=== PATIENT | female | born 1970 | race Caucasian/White ===

== ENCOUNTER 2018-07-21 19:41 | Emergency (ER) | payer MEDICARE, OTHER ==
[2018-07-21 20:31] VITALS: TEMP 97.9
[2018-07-21] MEDS ORDERED: Sodium Chloride 0.9% 1,000 ML IV ONE ×2 (21:02)
--- NOTE | 2018-07-21 21:05 | C.PDOC ---
History Of Present Illness 48 year old female presents to the ED c/o head injury, neck pain, lower back pain s/p falling. Patient reports she missed a step and hit the back of her head, lower back and neck. Patient denies visual changes, CP, SOB, rash, abdomin al pain, rash, weakness, numbness. - HPI Chief Complaint (Nursing): Trauma History Per: Patient History/Exam Limitations: no limitations Onset/Duration Of Symptoms: Hrs Injury Occurred (Timing): Just Before Arrival Location Of Injury: Posterior: Back, Head, Neck Recent travel outside of the [place]: No Additional History Per: Patient Past Medical History Reviewed: Historical Data, Nursing Documentation, Vital Signs Vital Signs: Last Vital Signs Temp 97.9 F 07/21/18 20:26 Pulse 95 H 07/21/18 20:26 Resp 14 07/21/18 20:26 BP 149/89 07/21/18 20:26 Pulse Ox 94 L 07/21/18 20:26 - Medical History PMH: Asthma, Bipolar Disorder, Colonic Polyps, Depression (NO MEDS AT PRESENT), Gall Bladder Disease, HTN Denies: Chronic Kidney Disease Surgical History: Cholecystectomy - [facility] COLONOSCOPY (11/03/13) Family History: States: Unknown Family Hx - Social History Hx Tobacco Use: No Hx Alcohol Use: No Hx Substance Use: No - Immunization History Hx Tetanus Toxoid Vaccination: Yes Hx Influenza Vaccination: Yes Hx Pneumococcal Vaccination: Yes Review Of Systems Constitutional: Negative for: Fever, Chills Eyes: Negative for: Vision Change Respiratory: Negative for: Cough, Shortness of Breath Gastrointestinal: Negative for: Nausea, Vomiting, Abdominal Pain Musculoskeletal: Positive for: Neck Pain, Back Pain Skin: Negative for: Rash Neurological: Positive for: Headache. Negative for: Weakness, Numbness, Dizziness Physical Exam - Physical Exam Appears: Non-toxic, No Acute Distress Skin: Normal Color, Warm, Dry Head: Normacephalic, Swelling (soft tissue occiput, tender to palpation) Eye(s): bilateral: Normal Inspection, PERRL, EOMI Oral Mucosa: Moist Neck: Normal ROM, No Midline Cervical Tenderness, Supple Chest: Symmetrical Cardiovascular: Rhythm Regular Respiratory: Normal Breath Sounds, No Rales, No Rhonchi, No Wheezing Gastrointestinal/Abdominal: Soft, No Tenderness, No Guarding, No Rebound Back: No Vertebral Tenderness, Other (ecchymosis, sacroiliac area) Extremity: Normal ROM, No Tenderness, No Swelling Neurological/Psych: Oriented x3, Normal Speech, Normal Cognition, Other (Non focal) Gait: Steady ED Course And Treatment - Laboratory Results Result Diagrams: 07/21/18 21:57 07/21/18 21:57 ECG: Interpreted By Me, Viewed By Me ECG Rhythm: Sinus Rhythm, R BBB ECG Interpretation: No Acute Changes Interpretation Of ECG: NSR, IRBBB, Borderline tracings. Rate From EC O2 Sat by Pulse Oximetry: 94 Pulse Ox Interpretation: Normal - CT Scan/US CT head Other Rad Studies (CT/US): Read By Radiologist, Radiology Report Reviewed CT/US Interpretation: EXAM: CT Head Without IV contrast. CLINICAL HISTORY: Injury. TECHNIQUE: Axial computed tomography images of the head/brain without intravenous contrast. COMPARISON: None provided. FINDINGS: BRAIN: No evidence for acute intracranial hemorrhage. No midline shift or mass effect. No CT evidence for acute territorial infarction. VENTRICLES: No hydrocephalus. ORBITS: The orbits are unremarkable. SINUSES AND MASTOIDS: The paranasal sinuses and mastoid air cells are clear. BONES: No evidence for displaced calvarial fracture. SOFT TISSUES: Unremarkable. MISCELLANEOUS: The study is slightly limited by motion and beam hardening artifact. IMPRESSION: 1. The study is slightly limited by motion and beam hardening artifact. 2. No CT evidence for acute intracranial abnormality. . Electronically signed on Jul 21, 2018 11:40:23 PM EDT by: Maxim Cornejo M.D., Certified by ABR, Diagnostic Radiology. CT c spine Other Rad Studies (CT/US): Read By Radiologist, Radiology Report Reviewed CT/US Interpretation: EXAM: CT Cervical Spine Without IV contrast. CLINICAL HISTORY: Injury. TECHNIQUE: Axial computed tomography images of the cervical spine without intravenous contrast. Sagittal and coronal reformatted images were generated. COMPARISON: None provided. FINDINGS: ALIGNMENT: There is straightening of the cervical lordosis. No evidence for acute fracture or subluxation. No significant cervical scoliosis. DEGENERATIVE CHANGES: There are moderate multilevel degenerative spine changes in the cervical spine. SOFT TISSUES: No focal prevertebral soft tissue swelling. BONES: No acute fracture or aggressive appearing osseous lesion. MISCELLANEOUS: Minimal biapical sc arring. IMPRESSION: 1. There are moderate multilevel degenerative spine changes in the cervical spine. 2. There is straightening of the cervical lordosis. 3. No evidence for acute fracture or subluxation. . Electronically signed on Jul 21, 2018 11:58:43 PM EDT by: Maxim Cornejo M.D., Certified by ABR, Diagnostic Radiology. CT ls spine Other Rad Studies (CT/US): Read By Radiologist, Radiology Report Reviewed CT/US Interpretation: EXAM: CT Lumbar Spine without IV contrast. CLINICAL HISTORY: Injury. TECHNIQUE: Axial computed tomography images of the lumbar spine without intravenous contrast. Sagittal and coronal reformatted images were generated. 0.00 mGy-cm. COMPARISON: None provided. FINDINGS: ALIGNMENT: No evidence for acute fracture or subluxation. DISCS/DEGENERATIVE CHANGES: T12/L1: No high-grade central canal stenosis. L1/L2: No high-grade central canal stenosis. L2/L3: No high-grade central canal stenosis. L3/4: No high- grade central canal stenosis. Mild diffuse disc bulge. L4/5: No high-grade ce ntral canal stenosis. Mild diffuse disc bulge. L5/S1: No high-grade central canal stenosis. Mild diffuse disc bulge. BONES: There is diffuse osteopenia. The vertebral body height are preserved. There are moderate multilevel degenerative spine changes most notably involving the posterior elements. SOFT TISSUES: The soft tissues are unremarkable. ABDOMINAL AND PELVIC STRUCTURES. Surgical clips are noted in the gallbladder fossa. MISCELLANEOUS: IMPRESSION: 1. There is diffuse osteopenia. 2. The vertebral body height are preserved. 3. There are moderate multilevel degenerative spine changes most notably involving the posterior elements. 4. No evidence for acute fracture or subluxation. 5. No high-grade central canal stenoses identified. If more detailed evaluation is needed, recommend MRI of the lumbar spine. . Electronically signed on Jul 22, 2018 12:03:57 AM EDT by: Maxim Cornejo M.D., Certified by ABR, Diagnostic Radiology Medical Decision Making Medical Decision Making: Plan: * CT head * CT c spine * CT ls spine * EKG * Labs * IV fluids * Toradol 30 mg IVP * UA Disposition Counseled Patient/Family Regarding: Diagnosis - Disposition Referrals: [facility] [Outside] Disposition: HOME/ ROUTINE Disposition Time: 00:10 Condition: STABLE Prescriptions: Cyclobenzaprine [Flexeril] 5 mg PO TID #20 tab Naproxen 375 mg PO TIDPC #20 tablet Nitrofurantoin Macrocrystals [Macrobid] 1 cap PO BID #14 cap Instructions: Muscle Strain, Contusion (DC), Minor Head Injury (DC), Polysubstance Abuse (DC), Urinary Tract Infection, Adult (DC) Forms: [facility] (Persian) - POA Present On Arrival: None - Clinical Impression Clinical Impression: Muscle strain, Contusion, Head injury, Polysubstance abuse, UTI (urinary tract infection) - Scribe Statement The provider has reviewed the documentation as recorded by the Scribe Aly Cruz All medical record entries made by the Scribe were at my direction and personally dictated by me. I have reviewed the chart and agree that the record accurately reflects my personal performance of the history, physical exam, medical decision making, and the department course for this patient. I have also personally directed, reviewed, and agree with the discharge instructions and disposition.
[2018-07-21] MEDS ORDERED: Sodium Chloride 0.9% 1,000 ML ONE (21:23)
[2018-07-21 22:06] LABS: BASO # 0.1 K/uL (0.0-0.2); BASO % 0.7 % (0.0-2.0); EOS # 0.4 K/uL (0.0-0.7); EOS % 4.2 % (0.0-4.0); HEMOGLOBIN 13.2 g/dL (11.0-16.0); LYMPH # 2.5 K/uL (1.0-4.3); LYMPH % 24.6 % (20.0-40.0); MEAN CELL VOLUME 92.2 fL (81.0-99.0); MEAN CORPUSCULAR HEMOGLOBIN 29.9 pg (27.0-31.0); MEAN CORPUSCULAR HGB CONC 32.4 g/dL (33.0-37.0); MEAN PLATELET VOLUME 11.4 fL (7.2-11.7); MONO # 0.7 K/uL (0.0-0.8); MONO % 6.9 % (0.0-10.0); NEUT # 6.5 K/uL (1.8-7.0); NEUT % 63.6 % (50.0-75.0); RBC 4.4 Mil/uL (3.80-5.20); RED CELL DISTRIBUTION WIDTH 14.7 % (11.5-14.5); WHITE BLOOD COUNT 10.2 K/uL (4.8-10.8)
[2018-07-21 22:17] LABS: HCG,QUALITATIVE URINE NEGATIVE (NEGATIVE)
[2018-07-21 22:19] LABS: ALB/GLOB RATIO 1.4 (1.0-2.1); ALBUMIN 4.4 g/dL (3.5-5.0); BLOOD UREA NITROGEN 20 mg/dL (7-17); CALCIUM 8.9 mg/dl (8.6-10.4); GFR NON-AFRICAN AMERICAN > 60
[2018-07-21 22:21] LABS: SQUAMOUS EPITHIAL 7 /hpf (0-5); URINE BACTERIA OCC (<OCC); URINE BILIRUBIN NEGATIVE (NEGATIVE); URINE BLOOD NEGATIVE (NEGATIVE); URINE CLARITY Hazy (Clear); URINE COLOR Yellow (YELLOW); URINE GLUCOSE (UA) NORMAL (Normal); URINE LEUKOCYTE ESTERASE 1+ Leu/uL (Negative); URINE PROTEIN NEGATIVE (NEGATIVE)
[2018-07-21 22:23] LABS: ALT/SGPT 10 U/L (9-52); AST/SGOT 37 U/L (14-36)
[2018-07-21 22:29] VITALS: RESP 18
[2018-07-21 22:33] LABS: BARBITURATES, UR NEGATIVE (NEGATIVE); BENZODIAZEPINES, UR NEGATIVE (NEGATIVE)
[2018-07-21 22:36] LABS: OPIATES, UR POSITIVE (NEGATIVE); PHENCYCLIDINE, UR POSITIVE (NEGATIVE)
[2018-07-22 00:40] VITALS: BP 120/89; PULSE 77; O2SAT 98
--- NOTE | 2018-07-22 08:40 | CT ---
Date of service: 07/21/2018 PROCEDURE: CT HEAD WITHOUT CONTRAST. HISTORY: Head injury/headache COMPARISON: 03/21/2013. TECHNIQUE: Axial computed tomography images were obtained through the head/brain without intravenous contrast. Radiation dose: Total exam DLP = 1073.61 mGy-cm. This CT exam was performed using one or more of the following dose reduction techniques: Automated exposure control, adjustment of the mA and/or kV according to patient size, and/or use of iterative reconstruction technique. FINDINGS: HEMORRHAGE: No intracranial hemorrhage. BRAIN: Pate-white matter differentiation is preserved. There is no mass, mass effect or abnormal extra-axial fluid collection. There is no territorial infarction. The midline sagittal structures are normal. VENTRICLES: The ventricles are normal in size, shape and configuration. CALVARIUM: There is no calvarial fracture or extracranial soft tissue swelling. PARANASAL SINUSES: Predominantly clear. MASTOID AIR CELLS: Predominantly clear. OTHER FINDINGS: None. IMPRESSION: No acute intracranial abnormality. A preliminary report was provided by [facility].
--- NOTE | 2018-07-22 08:48 | CT ---
Date of service: 07/21/2018 PROCEDURE: CT Cervical Spine without contrast HISTORY: injury COMPARISON: None available. TECHNIQUE: Axial computed tomography images were obtained of the cervical spine without the use of intravenous contrast. Coronal and sagittal reformatted images were created and reviewed. Radiation dose: Total exam DLP = 453.91 mGy-cm. This CT exam was performed using one or more of the following dose reduction techniques: Automated exposure control, adjustment of the mA and/or kV according to patient size, and/or use of iterative reconstruction technique. FINDINGS: VERTEBRAE: There is normal alignment of the cervical vertebral bodies. There straightening of the cervical spine with loss of normal cervical lordosis. Vertebral height is normal. Bone mineralization is normal. There is no acute fracture or traumatic anterior listhesis. The craniocervical junction is normal. There is mild degenerative osteoarthrosis at the atlantoaxial joint. DISCS/SPINAL CANAL/NEURAL FORAMINA: There is multilevel degenerative disc disease due to combination of disc osteophyte complexes, uncovertebral joint hypertrophy and multilevel facet arthropathy, worse at C5-6 with a broad-based disc osteophyte complex, mild spinal canal stenosis and severe bilateral neural foraminal narrowing. PARASPINAL SOFT TISSUES: Paraspinous soft tissues are normal. OTHER FINDINGS: No apical pneumothorax. IMPRESSION: No acute fracture or traumatic anterior listhesis. Straightening of the cervical spine may be positional or related to muscle spasm. Multilevel degenerative disc disease, worse at C5-6 with a broad-based disc osteophyte complex, mild spinal canal stenosis and severe neural foraminal narrowing. A preliminary report was provided by [facility].
--- NOTE | 2018-07-22 09:09 | CT ---
Date of service: 07/21/2018 PROCEDURE: CT Lumbar Spine without contrast HISTORY: injury COMPARISON: None available. TECHNIQUE: Axial computed tomography images were obtained of the lumbar spine without the use of intravenous contrast. Coronal and sagittal reformatted images were created and reviewed. Radiation dose: Total exam DLP = 447.91 mGy-cm. This CT exam was performed using one or more of the following dose reduction techniques: Automated exposure control, adjustment of the mA and/or kV according to patient size, and/or use of iterative reconstruction technique. FINDINGS: VERTEBRAE: There is normal alignment of the lumbar vertebral bodies. There is normal lumbar lordosis. There is mild diffuse bone demineralization. There is no acute fracture, spondylolysis or spondylolisthesis. DISCS/SPINAL CANAL/NEURAL FORAMINA: Evaluation of the discs and spinal canal is limited on noncontrast CT examination. L1-2: No large disc herniation, neural foraminal narrowing or spinal canal stenosis. L2-3: No large disc herniation, neural foraminal narrowing or spinal canal stenosis. L3-4: No large disc herniation, neural foraminal narrowing or spinal canal stenosis. L4-5: Posterior disc bulge indents the ventral thecal sac without central spinal canal stenosis. Superimposed left foraminal and far lateral disc protrusion impinge on the exiting left L4 nerve root. Mild bilateral facet arthropathy contribute to moderate right and severe left neural foraminal narrowing. L5-S1: Posterior disc bulge with superimposed left posterolateral disc protrusion likely impinges on the traversing S1 nerve root. Severe bilateral facet arthropathy contribute to severe neural foraminal narrowing. PARASPINAL SOFT TISSUES: Paraspinous soft tissues are normal. OTHER FINDINGS: None. IMPRESSION: No acute fracture, spondylolysis or spondylolisthesis. Multilevel degenerative disc disease, worse at L5-S1 with the left posterolateral disc protrusion which likely impinges on the traversing S1 nerve root. Also noted is severe bilateral neural foraminal narrowing. Additional comments as described above
--- NOTE | 2018-07-22 12:39 | CARD ---
APPROVED REPORT Date of service: 07/21/2018 EKG Measurement Heart [id number] <Conclusion> Normal sinus rhythm Borderline ECG
== END 2018-07-22 01:20 | disposition home or self-care (01) ==
LOC: C.ER 19:41
DX: S09.90XA Unspecified injury of head, initial encounter (principal); S16.1XXA Strain of muscle, fascia and tendon at neck level, initial encounter; S30.0XXA Contusion of lower back and pelvis, initial encounter; W10.9XXA Fall (on) (from) unspecified stairs and steps, initial encounter; F19.10 Other psychoactive substance abuse, uncomplicated
CPT/HCPCS: 70450; 72125; 72131; 80053; 81001; 84703; 85025; 87086; 93005; 96374; 99285; G0480; J1885; J7030